=== PATIENT | female | born 1945 | race Caucasian/White ===

== ENCOUNTER 2016-12-30 19:43 | Inpatient (IN) | payer MEDICARE, OTHER ==
[~2016-12-30] VITALS: Ht 165.1 cm; Wt 43.5 kg
[2016-12-30] MEDS ORDERED: methylPREDNISolone SOD SUCC 125 MG/2 ML VIAL IVP ONE (20:00)
[2016-12-30] MEDS ORDERED: SODIUM CHLORIDE 0.9% FLUSH 10 ML FLUSH IVF PRN (20:00)
[2016-12-30 20:06] LABS: AUTOMATED NEUTROPHIL # 6.9 TH/MM3 (1.8-7.7); BASOPHIL % 0.2 % (0.0-2.0); EOSINOPHIL % 0.2 % (0.0-4.0); HEMATOCRIT 39.8 % (35.0-46.0); HEMO FLAGS DIFF FINAL; LYMPH % 5.1 % (9.0-44.0); LYMPHOCYTE # 0.4 TH/MM3 (1.0-4.8); MEAN CELL VOLUME 85.9 FL (80.0-100.0); MEAN CORPUSCULAR HEMOGLOBIN 28.8 PG (27.0-34.0); MEAN CORPUSCULAR HGB CONC 33.5 % (32.0-36.0); MONO % 8.5 % (0.0-8.0); PLATELET COUNT 158 TH/MM3 (150-450); RED BLOOD COUNT 4.63 MIL/MM3 (4.00-5.30); RED CELL DISTRIBUTION WIDTH 14.1 % (11.6-17.2); WHITE BLOOD COUNT 8.1 TH/MM3 (4.0-11.0)
--- NOTE | 2016-12-30 20:06 | PD ---
HPI Chief Complaint: shortness of breath Time Seen by Provider: 19:48 Travel History International Travel<30 days: No Contact w/Intl Traveler<30days: No Traveled to known affect area: No History of Present Illness HPI The patient is a 71-year-old female who presents to the emergency department shortness of breath. The patient is currently on vacation from [place]. The patient has a history of COPD and CHF, is chronically on oxygen via 1 L at home. The patient states she developed shortness of breath last night which is progressively worsened. She also complains of a dry nonproductive cough. The patient denies any history of previous intubations for COPD, however, does note a history of previous blood clot. The patient is currently on Coumadin for a blood clot. The patient denies any fever, chills, sweats, or lower extremity edema. The patient denies any current chest pain, does note a dry nonproductive cough, shortness of breath which is worse with exertion and minimally alleviated with oxygen. The patient denies any current nausea, vomiting, diarrhea, or abdominal pain. PFSH Past Medical History Narrative Medical Congestive heart failure, COPD Social History Tobacco Use: Yes Allergies-Medications (Allergen,Severity, Reaction): Coded Allergies: No Known Allergies (Unverified , 12/30/16) Reported Meds & Prescriptions Reported Meds & Active Scripts Active Reported Hydrocodone-Acetaminophen 10-325 mg Tab 1 Tab PO Q4H PRN Amlodipine (Amlodipine Besylate) 5 Mg Tab 5 Mg PO DAILY Hydrochlorothiazide 25 Mg Tab 25 Mg PO DAILY Omeprazole 40 Mg Cap 40 Mg PO DAILY Ferrous Sulfate 325 Mg Tab 325 Mg PO DAILY Losartan (Losartan Potassium) 50 Mg Tab 50 Mg PO DAILY Pravastatin 20 Mg Tab 20 Mg PO HS Coumadin (Warfarin) 5 Mg Tab 5 Mg PO MON,WED,FRI Trazodone (Trazodone HCl) 100 Mg Tab 200 Mg PO HS Carvedilol 25 Mg Tab 25 Mg PO BID Review of Systems Except as stated in HPI: all other systems reviewed are Neg General / Constitutional: No: Fever Cardiovascular: Positive: Dyspnea on exertion, No: Chest Pain or Discomfort Respiratory: Positive: Cough, Shortness of Breath Gastrointestinal: No: Nausea, Vomiting, Abdominal Pain Musculoskeletal: No: Edema Neurologic: No: Dizziness Physical Exam Narrative GENERAL: 71-year-old female who appears her stated age and in mild respiratory distress. Thin build. SKIN: Warm and dry. HEAD: Atraumatic. Normocephalic. EYES: No injection or drainage. ENT: No nasal bleeding or discharge. Mucous membranes pink and moist. NECK: Trachea midline. No JVD. CARDIOVASCULAR: Regular rate and rhythm. No murmur appreciated. RESPIRATORY: Mild tachypnea with a respiratory rate of 22. Diminished breath sounds in the bases with prolonged expiratory phase. Supraclavicular retractions. GASTROINTESTINAL: Abdomen soft, non-tender, nondistended. No rebound tenderness. MUSCULOSKELETAL: No obvious deformities. No clubbing. No cyanosis. No edema. NEUROLOGICAL: Awake and alert. No obvious cranial nerve deficits. Motor grossly within normal limits. Normal speech. PSYCHIATRIC: Appropriate mood and affect; insight and judgment normal. Data Data Last Documented VS Vital Signs Date Time Temp Pulse Resp B/P Pulse Ox O2 Delivery O2 Flow Rate FiO2 12/30/16 20:14 Nasal Cannula 4 12/30/16 20:11 98.8 69 28 120/57 92 Orders Complete Blood Count With Diff (12/30/16 19:48) Comprehensive Metabolic Panel (12/30/16 19:48) B-Type Natriuretic Peptide (12/30/16 19:48) Act Partial Throm Time (Ptt) (12/30/16 19:48) Prothrombin Time / Inr (Pt) (12/30/16 19:48) Magnesium (Mg) (12/30/16 19:48) Ckmb (Isoenzyme) Profile (12/30/16 19:48) Troponin I (12/30/16 19:48) Iv Access Insert/Monitor (12/30/16 19:48) Electrocardiogram (12/30/16 19:48) Ecg Monitoring (12/30/16 19:48) Oximetry (12/30/16 19:48) Oxygen Administration (12/30/16 19:48) Chest, Single Ap (12/30/16 19:48) Sodium Chloride 0.9% Flush (Ns Flush) (12/30/16 20:00) Methylprednisolone So Succ Inj (Solumedr (12/30/16 20:00) Albuterol-Ipratropium Neb (Duoneb Neb) (12/30/16 20:00) Ceftriaxone Inj (Rocephin Inj) (12/30/16 21:00) Azithromycin Inj (Zithromax Inj) (12/30/16 21:00) Admit Order (Ed Use Only) (12/30/16 21:23) Lactic Acid (12/30/16 21:21) Blood Culture (12/30/16 21:21) Ceftriaxone Inj (Rocephin Inj) (12/31/16 07:00) Azithromycin Inj (Zithromax Inj) (12/31/16 07:00) Albuterol-Ipratropium Neb (Duoneb Neb) (12/30/16 22:00) Albuterol-Ipratropium Neb (Duoneb Neb) (12/30/16 21:30) Sputum Culture And Gram Stain (12/30/16 21:21) Legionella Urinary Antigen (12/30/16 21:21) Pneumococcal Urinary Antigen (12/30/16 21:21) Influenzae A/B Antigen (12/30/16 21:21) Arterial Blood Gas (Abg) (12/30/16 ) Methylprednisolone So Succ Inj (Solumedr (12/31/16 00:00) Admit To Inpatient (12/30/16 ) Vital Signs (Adult) Q4H (12/30/16 21:25) Activity Oob With Assistance (12/30/16 21:25) [employer] / Telemetry .CONTINUOUS (12/30/16 21:25) Intake + Output NICOL.QSHIFT (12/30/16 21:25) Diet Heart Healthy (12/31/16 Breakfast) Sodium Chloride 0.9% Flush (Ns Flush) (12/30/16 21:30) Sodium Chloride 0.9% Flush (Ns Flush) (12/31/16 09:00) Acetaminophen (Tylenol) (12/30/16 21:30) Ondansetron Inj (Zofran Inj) (12/30/16 21:30) Docusate Sodium (Colace) (12/30/16 21:30) Sennosides (Senokot) (12/30/16 21:30) Prothrombin Time / Inr (Pt) (12/31/16 06:00) Resp Oxygen Sha C Titrat 1-4 L (12/30/16 ) Case Management Consult (12/30/16 21:25) Scd Bilateral/Knee High NICOL.BID (12/30/16 21:25) Acetaminophen (Tylenol) (12/30/16 21:30) Naloxone Inj (Narcan Inj) (12/30/16 21:30) Inpatient Certification (12/30/16 ) Labs Laboratory Tests Test 12/30/16 20:00 White Blood Count 8.1 TH/MM3 Red Blood Count 4.63 MIL/MM3 Hemoglobin 13.3 GM/DL Hematocrit 39.8 % Mean Corpuscular Volume 85.9 FL Mean Corpuscular Hemoglobin 28.8 PG Mean Corpuscular Hemoglobin 33.5 % Concent Red Cell Distribution Width 14.1 % Platelet Count 158 TH/MM3 Mean Platelet Volume 6.8 FL Neutrophils (%) (Auto) 86.0 % Lymphocytes (%) (Auto) 5.1 % Monocytes (%) (Auto) 8.5 % Eosinophils (%) (Auto) 0.2 % Basophils (%) (Auto) 0.2 % Neutrophils # (Auto) 6.9 TH/MM3 Lymphocytes # (Auto) 0.4 TH/MM3 Monocytes # (Auto) 0.7 TH/MM3 Eosinophils # (Auto) 0.0 TH/MM3 Basophils # (Auto) 0.0 TH/MM3 CBC Comment DIFF FINAL Differential Comment Prothrombin Time 26.6 SEC Prothromb Time International 2.3 RATIO Ratio Activated Partial 49.0 SEC Thromboplast Time Sodium Level 133 MEQ/L Potassium Level 4.3 MEQ/L Chloride Level 91 MEQ/L Carbon Dioxide Level 34.1 MEQ/L Anion Gap 8 MEQ/L Blood Urea Nitrogen 21 MG/DL Creatinine 0.91 MG/DL Estimat Glomerular Filtration 61 ML/MIN Rate Random Glucose 113 MG/DL Calcium Level 8.8 MG/DL Magnesium Level 1.7 MG/DL Total Bilirubin 0.5 MG/DL Aspartate Amino Transf 14 U/L (AST/SGOT) Alanine Aminotransferase 13 U/L (ALT/SGPT) Alkaline Phosphatase 151 U/L Total Creatine Kinase 36 U/L Troponin I LESS THAN 0.02 NG/ML B-Type Natriuretic Peptide 186 PG/ML Total Protein 6.9 GM/DL Albumin 2.6 GM/DL MDM Medical Decision Making Medical Screen Exam Complete: Yes Emergency Medical Condition: Yes Medical Record Reviewed: Yes Interpretation(s) EKG reveals normal sinus rhythm with a rate of 61. Incomplete right bundle branch block with RSR prime in V1. Q wave noted in lead V1 and V2. Chest x-ray reveals perihilar and basilar infiltrate, mainly on the left. Slight left perihilar prominence. Last Impressions Chest X-Ray 12/30/161947 Signed Impressions: Service Date/Time: Friday, December 30, 2016 20:09 - CONCLUSION: Perihilar and basilar infiltrate, mainly on the left. Slight left hilar prominence. Nasim Peña MD Laboratory Tests Test 12/30/16 20:00 White Blood Count 8.1 TH/MM3 Red Blood Count 4.63 MIL/MM3 Hemoglobin 13.3 GM/DL Hematocrit 39.8 % Mean Corpuscular Volume 85.9 FL Mean Corpuscular Hemoglobin 28.8 PG Mean Corpuscular Hemoglobin 33.5 % Concent Red Cell Distribution Width 14.1 % Platelet Count 158 TH/MM3 Mean Platelet Volume 6.8 FL Neutrophils (%) (Auto) 86.0 % Lymphocytes (%) (Auto) 5.1 % Monocytes (%) (Auto) 8.5 % Eosinophils (%) (Auto) 0.2 % Basophils (%) (Auto) 0.2 % Neutrophils # (Auto) 6.9 TH/MM3 Lymphocytes # (Auto) 0.4 TH/MM3 Monocytes # (Auto) 0.7 TH/MM3 Eosinophils # (Auto) 0.0 TH/MM3 Basophils # (Auto) 0.0 TH/MM3 CBC Comment DIFF FINAL Differential Comment Prothrombin Time 26.6 SEC Prothromb Time International 2.3 RATIO Ratio Activated Partial 49.0 SEC Thromboplast Time Sodium Level 133 MEQ/L Potassium Level 4.3 MEQ/L Chloride Level 91 MEQ/L Carbon Dioxide Level 34.1 MEQ/L Anion Gap 8 MEQ/L Blood Urea Nitrogen 21 MG/DL Creatinine 0.91 MG/DL Estimat Glomerular Filtration 61 ML/MIN Rate Random Glucose 113 MG/DL Calcium Level 8.8 MG/DL Magnesium Level 1.7 MG/DL Total Bilirubin 0.5 MG/DL Aspartate Amino Transf 14 U/L (AST/SGOT) Alanine Aminotransferase 13 U/L (ALT/SGPT) Alkaline Phosphatase 151 U/L Total Creatine Kinase 36 U/L Troponin I LESS THAN 0.02 NG/ML B-Type Natriuretic Peptide 186 PG/ML Total Protein 6.9 GM/DL Albumin 2.6 GM/DL Differential Diagnosis Differential diagnosis includes COPD exacerbation, bronchitis, pneumonia, pulmonary embolism, congestive heart failure, pleural effusion, pneumothorax. Narrative Course IV was established, labs are drawn and sent, and the patient was placed on cardiac telemetry monitoring and continuous pulse oximetry monitoring. EKG was ordered and interpreted. Chest x-ray was obtained. The patient was administered Solu-Medrol and DuoNeb nebs 3. Patient's O2 saturation was 88% on 4 L. Chest x-ray reveals perihilar basilar infiltrate, mainly on the left, therefore, patient was administered Rocephin and Zithromax. The patient was reevaluated at 9 PM, still has supraclavicular retractions and respiratory rate of 22-24. O2 sat did improve to 95% on 4 L, patient is normally on 1-2 satting above 92%. The patient appears to have pneumonia which is exacerbating her COPD. INR is therapeutic, I do not believe the patient has a pulmonary embolism. Therefore, the patient will be admitted for pneumonia, COPD exacerbation, and acute hypoxia on chronic hypoxia. Sepsis Criteria SIRS Criteria (2 or more): RR > 20 or PaCO2 < 32 Physician Communication Physician Communication The on-call medical service was paged for admission. I discussed the patient with Dr. Saldivar who agrees with admission. Diagnosis Primary Impression: Pneumonia Qualified Code: J18.9 - Pneumonia of left lung due to infectious organism, unspecified part of lung Additional Impressions: Hypoxia COPD exacerbation Admitting Information Admitting Physician Requests: Admit Condition: Stable Jose Boone MD Dec 30, 2016 20:06
[2016-12-30] MEDS: RESP: ALBUTEROL 2.5 MG/IPRATROPIUM 0.5 MG NEB (SCH) INH ×2 (20:10→21:47)
[2016-12-30 20:11] VITALS: BP 120/57; PULSE 69; RESP 28; TEMP 98.8; O2SAT 92
[2016-12-30 20:28] LABS: INTERNATIONAL NORMALIZED RATIO 2.3 RATIO; PROTHROMBIN TIME - PATIENT 26.6 SEC (9.8-11.6)
[2016-12-30] MEDS ORDERED: OMEP40CA2 PO (20:37)
[2016-12-30] MEDS ORDERED: PRAV20TA2 PO (20:37)
[2016-12-30] MEDS ORDERED: COUM5TAB PO (20:37)
[2016-12-30] MEDS ORDERED: TRAZ100T4 PO (20:37)
[2016-12-30] MEDS ORDERED: CARV25TA PO (20:37)
[2016-12-30] MEDS ORDERED: LOSA50TA PO (20:37)
[2016-12-30] MEDS ORDERED: HYDR-3583 PO (20:37)
[2016-12-30] MEDS ORDERED: HYDR25TA5 PO (20:37)
[2016-12-30] MEDS ORDERED: AMLO5TAB2 PO (20:37)
[2016-12-30] MEDS ORDERED: FERR325T PO (20:37)
[2016-12-30 20:39] LABS: ANION GAP 8 MEQ/L (5-15); AST (GOT) 14 U/L (15-37); BICARBONATE 34.1 MEQ/L (21.0-32.0); BLOOD UREA NITROGEN 21 MG/DL (7-18); CHLORIDE 91 MEQ/L (98-107); GLOMERULAR FILTRATION RATE 61 ML/MIN (>89); MAGNESIUM 1.7 MG/DL (1.5-2.5); POTASSIUM 4.3 MEQ/L (3.5-5.1); SODIUM (NA) 133 MEQ/L (136-145)
[2016-12-30 20:43] LABS: ALKALINE PHOSPHATASE 151 U/L (45-117); ALT (GPT) 13 U/L (10-53); TOTAL BILIRUBIN ADULT 0.5 MG/DL (0.2-1.0)
[2016-12-30 20:48] LABS: CREATINE KINASE 36 U/L (26-192)
--- NOTE | 2016-12-30 20:49 | RADRPT ---
EXAM DATE/TIME: 12/30/2016 20:09 [facility] COMPARISON: No previous studies available for comparison. INDICATIONS : SOB MEDICAL HISTORY : None. SURGICAL HISTORY : None. ENCOUNTER: Initial ACUITY: 1 day PAIN SCORE: 6/10 LOCATION: chest FINDINGS: Left hilar prominence. Reticulonodular interstitial infiltrate, mainly in the left perihilar region a nd left lung base. Borderline heart size. Slight right apical pleural thickening. CONCLUSION: Perihilar and basilar infiltrate, mainly on the left. Slight left hilar prominence. Nasim Peña MD on December 30, 2016 at 20:47 Board Certified Radiologist. This report was verified electronically.
[2016-12-30 21:00] VITALS: O2SAT 95
[2016-12-30] MEDS ORDERED: cefTRIAXone INJ 1,000 MG in SODIUM CHLORIDE 0.9% INJ 100 ML IV ONE (21:00)
[2016-12-30] MEDS ORDERED: AZITHROMYCIN INJ 500 MG in SODIUM CHLOR 0.9% 250 ML INJ 250 ML IV ONE (21:00)
[2016-12-30] MEDS ORDERED: ONDANSETRON HCL 4 MG/2 ML VIAL IVP PRN (21:30)
[2016-12-30] MEDS ORDERED: NALOXONE HCL 0.4 MG/ML AMP IV PRN (21:30)
[2016-12-30] MEDS ORDERED: SODIUM CHLORIDE 0.9% FLUSH 10 ML FLUSH IV FLUSH PRN (21:30)
[2016-12-30] MEDS ORDERED: RESP: ALBUTEROL 2.5 MG/IPRATROPIUM 0.5 MG NEB (PRN) INH (21:30)
[2016-12-30] MEDS ORDERED: ENALAPRILAT 1.25 MG/ML VIAL IV PRN (21:30)
[2016-12-30] MEDS ORDERED: SENNOSIDES 8.6 MG TAB PO PRN (21:30)
[2016-12-30] MEDS ORDERED: cloNIDine HCL 0.1 MG TAB PO PRN (21:30)
[2016-12-30] MEDS ORDERED: ACETAMINOPHEN 325 MG TAB PO PRN ×2 (21:30)
[2016-12-30 21:45] LABS: BLOOD GAS BASE EXCESS 5.3 mmol/L (-2-2); BLOOD GAS HCO3 30 mmol/L (22-26); BLOOD GAS METHEMOGLOBIN 0.4 % (0-2); BLOOD GAS O2 HGB SATURATION 90 % (90-100); BLOOD GAS OXYGEN CONTENT 15.4 Vol % (12.0-20.0); BLOOD GAS PCO2 46 mmHg (38-42); BLOOD GAS PO2 58 mmHG (61-120); BLOOD GAS TOTAL HGB 12.2 G/DL (12.0-16.0); TEMP CORR TO 98.6
[2016-12-30 21:46] LABS: CRITICAL VALUE YES; OXYGEN DEVICE NASAL CANNULA
[2016-12-30] MEDS: DOCUSATE SODIUM 100 MG CAP PO SCH (21:46)
[2016-12-30 21:47] LABS: DRAW SITE LT RADIAL; LITER FLOW 3 L/M; NUMBER OF ARTERIAL PUNCTURES 1; STAT YES; ULNAR PULSE PRESENT
[2016-12-30] MEDS ORDERED: ACETAMINOPHEN/HYDROcodone 325 MG/10 MG TAB PO ONE (22:00)
--- NOTE | 2016-12-30 22:12 | HHI.HP ---
[facility] Service [facility] Primary Care Physician Non-Staff Admission Diagnosis pneumonia, hypoxia, COPD exacerbation Diagnoses: (1) COPD exacerbation Diagnosis: Principal (2) Pneumonia Diagnosis: Principal (3) Hypoxia Diagnosis: Principal Chief Complaint: Shortness of breath Travel History International Travel<30 Days: No Contact w/Intl Traveler <30 Da: No Traveled to Known Affected Are: No Sepsis Criteria SIRS Criteria (2 or more): Heart rate over 90, RR > 20 or PaCO2 < 32 Sepsis Criteria (SIRS+source): Infect source susp/known Criteria Outcome: Meets SIRS criteria, Meets sepsis criteria History of Present Illness This a 71-year-old female with a history of congestive heart failure, COPD, chronic respiratory failure on 1 L nasal cannula at home, pulmonary embolism, hypertension and chronic back and leg pain on narcotic. See presents to the emergency department shortness of breath. The patient is currently on vacation from [place]. She developed shortness of breath last night which has progressively worsened associated with wheezing. It is worse with exertion. She also complains of cough unable to bring up phlegm. The patient denies any history of previous intubations for COPD, however, does note a history of previous blood clot. The patient is currently on Coumadin for a blood clot. The patient denies any fever, chills, sweats, nausea, diarrhea or abdominal pain. She has chronic lower extremity edema. In the emergency department, she was found to have pneumonia and was given IV Zithromax, Rocephin, Solu-Medrol and nebulizations. She has been advised further hospitalization. Review of Systems Constitutional: DENIES: Diaphoretic episodes, Fatigue, Fever, Weight gain, Weight loss, Chills, Dizziness, Change in appetite, Night Sweats Endocrine: DENIES: Heat/cold intolerance, Polydipsia, Polyuria, Polyphagia Eyes: DENIES: Blurred vision, Diplopia, Vision loss, Photosensitivity Ears, nose, mouth, throat: DENIES: Tinnitus, Vertigo, Throat pain, Hoarseness, Epistaxis, Odynophagia Respiratory: COMPLAINS OF: Cough, Wheezing, Shortness of breath, DENIES: Hemoptysis Cardiovascular: COMPLAINS OF: Dyspnea on Exertion, Lower Extremity Edema, DENIES: Chest pain, Palpitations, Syncope, PND, Orthopnea, Claudication Gastrointestinal: DENIES: Abdominal pain, Black stools, Bloody stools, Constipation, Diarrhea, Nausea, Vomiting, Difficulty Swallowing, Anorexia Genitourinary: DENIES: Urinary frequency, Urinary incontinence, Urgency, Hematuria, Dysuria, Nocturia, Vaginal discharge Musculoskeletal: COMPLAINS OF: Back pain Integumentary: DENIES: Rash Neurologic: DENIES: Headache, Localized weakness, Seizures, Tremor, Poor Balance Psychiatric: DENIES: Anxiety, Confusion, Depression, Hallucinations, Agitation , Suicidal Ideation, Homicidal Ideation, Delusions Past Family Social History Past Medical History As previously mentioned Past Surgical History 2 Stents in in her kidneys as well as in her aorta history of aneurysm Reported Medications Hydrocodone-Acetaminophen 10-325 mg Tab 1 Tab PO Q4H PRN Amlodipine (Amlodipine Besylate) 5 Mg Tab 5 Mg PO DAILY Hydrochlorothiazide 25 Mg Tab 25 Mg PO DAILY Omeprazole 40 Mg Cap 40 Mg PO DAILY Ferrous Sulfate 325 Mg Tab 325 Mg PO DAILY Losartan (Losartan Potassium) 50 Mg Tab 50 Mg PO DAILY Pravastatin 20 Mg Tab 20 Mg PO HS Coumadin (Warfarin) 5 Mg Tab 5 Mg PO MON,MON,MON Trazodone (Trazodone HCl) 100 Mg Tab 200 Mg PO HS Carvedilol 25 Mg Tab 25 Mg PO BID Allergies: Coded Allergies: No Known Allergies (Unverified , 12/30/16) Family History Diabetes mellitus Physical Exam Vital Signs Vital Signs Date Time Temp Pulse Resp B/P Pulse Ox O2 Delivery O2 Flow Rate FiO2 12/30/16 20:14 Nasal Cannula 4 12/30/16 20:11 98.8 69 28 120/57 92 12/30/16 19:45 88 Nasal Cannula 4 Physical Exam GENERAL: This is a well-nourished, well-developed patient, in mild respiratory distress with tachypnea and supraclavicular retractions. SKIN: No rashes, ecchymoses or lesions. Cool and dry. HEAD: Atraumatic. Normocephalic. No temporal or scalp tenderness. EYES: Pupils equal round and reactive. Extraocular motions intact. No scleral icterus. No injection or drainage. ENT: Nose without bleeding, purulent drainage or septal hematoma. Throat without erythema, tonsillar hypertrophy or exudate. Uvula midline. Airway patent. NECK: Trachea midline. No JVD or lymphadenopathy. Supple, nontender, no meningeal signs. CARDIOVASCULAR: Regular rate and rhythm without murmurs, gallops, or rubs. RESPIRATORY: Decreased Breath sounds equal bilaterally with prolonged expiratory phase. No wheezes, rales, or rhonchi. GASTROINTESTINAL: Abdomen soft, non-tender, nondistended. No guarding. MUSCULOSKELETAL: Extremities without clubbing, cyanosis but with bilateral lower extremity pitting edema. No joint tenderness, effusion, or edema noted. No calf tenderness. Negative Homans sign bilaterally. NEUROLOGICAL: Awake and alert. Cranial nerves II through XII intact. Motor and sensory grossly within normal limits. Five out of 5 muscle strength in all muscle groups. Normal speech. Laboratory Laboratory Tests Test 12/30/16 12/30/16 20:00 21:35 White Blood Count 8.1 Red Blood Count 4.63 Hemoglobin 13.3 Hematocrit 39.8 Mean Corpuscular Volume 85.9 Mean Corpuscular Hemoglobin 28.8 Mean Corpuscular Hemoglobin 33.5 Concent Red Cell Distribution Width 14.1 Platelet Count 158 Mean Platelet Volume 6.8 Neutrophils (%) (Auto) 86.0 Lymphocytes (%) (Auto) 5.1 Monocytes (%) (Auto) 8.5 Eosinophils (%) (Auto) 0.2 Basophils (%) (Auto) 0.2 Neutrophils # (Auto) 6.9 Lymphocytes # (Auto) 0.4 Monocytes # (Auto) 0.7 Eosinophils # (Auto) 0.0 Basophils # (Auto) 0.0 CBC Comment DIFF FINAL Differential Comment Prothrombin Time 26.6 Prothromb Time International 2.3 Ratio Activated Partial 49.0 Thromboplast Time Sodium Level 133 Potassium Level 4.3 Chloride Level 91 Carbon Dioxide Level 34.1 Anion Gap 8 Blood Urea Nitrogen 21 Creatinine 0.91 Estimat Glomerular Filtration 61 Rate Random Glucose 113 Calcium Level 8.8 Magnesium Level 1.7 Total Bilirubin 0.5 Aspartate Amino Transf 14 (AST/SGOT) Alanine Aminotransferase 13 (ALT/SGPT) Alkaline Phosphatase 151 Total Creatine Kinase 36 Troponin I LESS THAN 0.02 B-Type Natriuretic Peptide 186 Total Protein 6.9 Albumin 2.6 Blood Gas Puncture Site LT RADIAL Blood Gas Patient Temperature 98.6 Blood Gas HCO3 30 Blood Gas Base Excess 5.3 Blood Gas Oxygen Saturation 90 Arterial Blood pH 7.42 Arterial Blood Partial 46 Pressure CO2 Arterial Blood Partial 58 Pressure O2 Arterial Blood Oxygen Content 15.4 Arterial Blood 2.0 Carboxyhemoglobin Arterial Blood Methemoglobin 0.4 Blood Gas Hemoglobin 12.2 Oxygen Delivery Device NASAL CANNULA Blood Gas Liter Flow 3 Result Diagram: 12/30/16199912/30/161999 Imaging EKG tracing interpreted by me with sinus rhythm, poor R wave progression, incomplete RBBB no previous EKG for comparison Chest x-ray image interpreted by me with left lung infiltrate Last Impressions Chest X-Ray 12/30/161947 Signed Impressions: Service Date/Time: Friday, December 30, 2016 20:09 - CONCLUSION: Perihilar and basilar infiltrate, mainly on the left. Slight left hilar prominence. Nasim Peña MD Assessment and Plan Problem List: (1) COPD exacerbation ICD Code: J44.1 Status: Acute (2) Pneumonia ICD Code: J18.9 Status: Acute (3) Hypoxia ICD Code: R09.02 Status: Acute Assessment and Plan This a 71-year-old female with a history of congestive heart failure, COPD, chronic respiratory failure on 1 L nasal cannula at home, pulmonary embolism, hypertension and chronic back and leg pain on narcotic. See presents to the emergency department shortness of breath. The patient is currently on vacation from [place]. She developed shortness of breath last night which has progressively worsened associated with wheezing. It is worse with exertion. She also complains of cough unable to bring up phlegm. The patient denies any history of previous intubations for COPD, however, does note a history of previous blood clot. The patient is currently on Coumadin for a blood clot. The patient denies any fever, chills, sweats, nausea, diarrhea or abdominal pain. She has chronic lower extremity edema. In the emergency department, she was found to have pneumonia and was given IV Zithromax, Rocephin, Solu-Medrol and nebulizations. She has been advised further hospitalization. Acute on chronic respiratory failure. ABG with pH 7.42 PCO2 46 PO2 of 58. She does not want to be intubated. BiPAP as needed. Continue oxygen keep saturation at least 92% Sepsis with tachycardia and tachypnea. Obtain lactic acid per protocol Pneumonia, community-acquired. Patient received IV Rocephin and Zithromax and will continue. Obtain sputum culture, urinary Legionella and pneumococcal antigen and blood cultures. Acute COPD exacerbation. Continue IV Solu-Medrol 40 mg IV every 6 hours, nebulizations and oxygen to keep saturation at least 92%. Chronic medical conditions of congestive heart failure, pulmonary embolism, hypertension and chronic back and leg pain on narcotic. Monitor for fluid overload BNP slightly up 186, CHF education, I/O and monitor weight. Continue hydrochlorothiazide. Doubt pulmonary embolism patient anticoagulated with Coumadin and will continue. Continue outpatient medications as appropriate. We will hold losartan and amlodipine DVT prophylaxis with Coumadin and SCD Code Status DO NOT INTUBATE Discussed Condition With Patient and sister Physician Certification 2 Midnight Certification Type: Admission for Inpatient Services Order for Inpatient Services The services are ordered in accordance with Medicare regulations or non- Medicare payer requirements, as applicable. In the case of services not specified as inpatient-only, they are appropriately provided as inpatient services in accordance with the 2-midnight benchmark. Estimated LOS (days): 2 days is the estimated time the patient will need to remain in the hospital, assuming treatment plan goals are met and no additional complications. Post-Hospital Plan: Not yet determined Problem Qualifiers (1) Pneumonia: Qualified Code: J18.9 - Pneumonia of left lung due to infectious organism, unspecified part of lung Mono Saldivar MD Dec 30, 2016 22:12
[2016-12-30] MEDS: guaiFENesin E.R. 600 MG TAB PO SCH (23:05)
[2016-12-31] VITALS (10 sets, daily range): BP systolic 111–149; BP diastolic 55–71; PULSE 64–98; RESP 16–19; TEMP 96.1–97.6; O2SAT 93–97
[2016-12-31] MEDS: methylPREDNISolone SOD SUCC 40 MG/1 ML VIAL IV PUSH SCH ×3 (00:42→21:01)
[2016-12-31] MEDS: traZODone HCL 100 MG TAB PO SCH ×2 (00:46→21:05)
[2016-12-31] MEDS: RESP: ALBUTEROL 2.5 MG/IPRATROPIUM 0.5 MG NEB (SCH) INH ×4 (03:28→21:24)
[2016-12-31 04:39] LABS: INTERNATIONAL NORMALIZED RATIO 2.5 RATIO; PROTHROMBIN TIME - PATIENT 28.2 SEC (9.8-11.6)
[2016-12-31] MEDS: DOCUSATE SODIUM 100 MG CAP PO SCH ×3 (08:39→21:05)
[2016-12-31] MEDS: CARVEDILOL 12.5 MG TAB PO SCH ×2 (08:40→21:01)
[2016-12-31] MEDS: FERROUS SULFATE 325 MG (65 MG ELEMENTAL IRON) TAB PO SCH (08:41)
[2016-12-31] MEDS: HYDROCHLOROTHIAZIDE 25 MG TAB PO SCH (08:43)
[2016-12-31] MEDS: guaiFENesin E.R. 600 MG TAB PO SCH ×2 (08:43→21:04)
[2016-12-31] MEDS: ACETAMINOPHEN/HYDROcodone 325 MG/10 MG TAB PO PRN ×4 (08:43→21:14)
[2016-12-31] MEDS: PANTOPRAZOLE SOD 40 MG DELAYED RELEASE TAB PO SCH (08:43)
[2016-12-31] MEDS: SODIUM CHLORIDE 0.9% FLUSH 10 ML FLUSH IV FLUSH SCH ×2 (08:45→21:00)
--- NOTE | 2016-12-31 09:32 | HHI.PR ---
Subjective Remarks Follow-up Community-acquired pneumonia/sepsis/acute on chronic respiratory failure 12/31/16-patient seen and examined, reports some improvement or shortness of breath and denies any chest pain. Positive for nonproductive cough. Afebrile Objective Vitals Vital Signs Date Time Temp Pulse Resp B/P Pulse Ox O2 Delivery O2 Flow Rate FiO2 12/31/16 08:00 96.5 71 17 131/67 94 12/31/16 04:02 96.4 85 16 114/58 94 12/31/16 03:30 96 Nasal Cannula 4.00 12/31/16 00:12 96.1 72 18 111/55 97 12/30/16 21:00 95 Nasal Cannula 4.00 12/30/16 20:14 Nasal Cannula 4 12/30/16 20:11 98.8 69 28 120/57 92 12/30/16 19:45 88 Nasal Cannula 4 I/O 12/30/16 12/30/16 12/30/16 12/31/16 12/31/16 12/31/16 07:00 15:00 23:00 07:00 15:00 23:00 Intake Total 280 ml Balance 280 ml Intake Oral 280 ml # Voids 2 # Bowel Movements 0 Result Diagram: 12/30/16199912/30/161999 Imaging Last Impressions Chest X-Ray 12/30/161947 Signed Impressions: Service Date/Time: Friday, December 30, 2016 20:09 - CONCLUSION: Perihilar and basilar infiltrate, mainly on the left. Slight left hilar prominence. Nasim Peña MD Objective Remarks GENERAL: NAD SKIN: Warm and dry. HEAD: Normocephalic. EYES: No scleral icterus. No injection or drainage. NECK: Supple, trachea midline. No JVD or lymphadenopathy. CARDIOVASCULAR: Regular rate and rhythm without murmurs, gallops, or rubs. RESPIRATORY: Breath sounds decrease bilaterally. No accessory muscle use. GASTROINTESTINAL: Abdomen soft, non-tender, nondistended. MUSCULOSKELETAL: No cyanosis, or edema. BACK: Nontender without obvious deformity. No CVA tenderness. A/P Problem List: (1) COPD exacerbation ICD Code: J44.1 Status: Acute (2) Pneumonia ICD Code: J18.9 Status: Acute (3) Hypoxia ICD Code: R09.02 Status: Acute (4) COPD with acute lower respiratory infection ICD Code: J44.0 Status: Acute (5) COPD with respiratory failure, acute ICD Code: J96.00 Status: Acute Assessment and Plan 71-year-old female with COPD with acute respiratory failure ,Acute on chronic respiratory failure. ABG with pH 7.42 PCO2 46 PO2 of 58. BiPAP as needed. Continue oxygen keep saturation at least 92%. Treatment for COPD exacerbation Sepsis with tachycardia and tachypnea. Continue current antibiotics including Rocephin and azithromycin pending culture reports COPD with acute lower respiratory infection , community-acquired Pneumonia: Continue with IV Rocephin and Zithromax and monitor culture reports. sputum culture, urinary Legionella and pneumococcal antigen and blood cultures. Acute COPD exacerbation. Continue IV Solu-Medrol 40 mg IV every 6 hours however change to every 12H, continue nebulizations and oxygen to keep saturation at least 92%. Add Spiriva, Symbicort and Mucinex Chronic medical conditions of congestive heart failure, pulmonary embolism, hypertension and chronic back and leg pain on narcotic. Monitor for fluid overload BNP slightly up 186, CHF education, I/O and monitor weight. Continue hydrochlorothiazide. Continue outpatient medications as appropriate. Continue to hold losartan and amlodipine DVT prophylaxis with Coumadin and SCD Problem Qualifiers (1) Pneumonia: Qualified Code: J18.9 - Pneumonia of left lung due to infectious organism, unspecified part of lung Bret Maher MD Dec 31, 2016 09:32
[2016-12-31] MEDS: TIOTROPIUM BROMIDE 18 MCG INH INH SCH (12:53)
[2016-12-31] MEDS: guaiFENesin/CODEINE SYRUP 200 MG/20 MG/10 ML CUP PO PRN ×3 (12:55→21:12)
--- NOTE | 2016-12-31 16:08 | EKG ---
Date Performed: 12/30/2016 Time Performed: 20:01:50 PTAGE: 71 years EKG: Sinus rhythm INCOMPLETE RIGHT BUNDLE BRANCH BLOCK LEFT ANTERIOR FASCICULAR BLOCK ANTEROSEPTAL MYOCARDIAL INFARCTI ON Left ventricular hypertrophy by voltage ABNORMAL ECG NO PREVIOUS TRACING DOCTOR: Hadley López Interpretating Date/Time 12/31/2016 16:06:15
[2016-12-31] MEDS: BUDESONIDE-FORMOTEROL 160/4.5 MCG INHALER INH SCH (20:59)
[2016-12-31] MEDS: cefTRIAXone INJ 1,000 MG in SODIUM CHLORIDE 0.9% INJ 100 ML IV SCH (21:00)
[2016-12-31] MEDS: PRAVASTATIN SOD 20 MG TAB PO SCH (21:04)
[2016-12-31] MEDS: AZITHROMYCIN INJ 500 MG in SODIUM CHLOR 0.9% 250 ML INJ 250 ML IV SCH (22:25)
[2017-01-01] VITALS (7 sets, daily range): BP systolic 129–179; BP diastolic 70–83; PULSE 62–82; RESP 17–18; TEMP 95.7–97.4; O2SAT 90–98
[2017-01-01] MEDS: RESP: ALBUTEROL 2.5 MG/IPRATROPIUM 0.5 MG NEB (SCH) INH ×4 (02:59→21:56)
[2017-01-01 04:39] LABS: BICARBONATE 34.7 MEQ/L (21.0-32.0); POTASSIUM 3.9 MEQ/L (3.5-5.1)
[2017-01-01 04:40] LABS: INTERNATIONAL NORMALIZED RATIO 2.2 RATIO; PROTHROMBIN TIME - PATIENT 25.2 SEC (9.8-11.6)
[2017-01-01 05:00] LABS: AUTOMATED NEUTROPHIL # 6.2 TH/MM3 (1.8-7.7); BASOPHIL % 0.1 % (0.0-2.0); HEMATOCRIT 35.1 % (35.0-46.0); HEMO FLAGS DIFF FINAL; LYMPH % 4.6 % (9.0-44.0); LYMPHOCYTE # 0.3 TH/MM3 (1.0-4.8); MEAN CELL VOLUME 85.2 FL (80.0-100.0); MEAN CORPUSCULAR HEMOGLOBIN 28.5 PG (27.0-34.0); MEAN CORPUSCULAR HGB CONC 33.4 % (32.0-36.0); MONO % 3.7 % (0.0-8.0); NEUT % 91.6 % (16.0-70.0); PLATELET COUNT 177 TH/MM3 (150-450); RED BLOOD COUNT 4.12 MIL/MM3 (4.00-5.30); WHITE BLOOD COUNT 6.8 TH/MM3 (4.0-11.0)
[2017-01-01] MEDS: guaiFENesin/CODEINE SYRUP 200 MG/20 MG/10 ML CUP PO PRN ×4 (08:57→22:03)
[2017-01-01] MEDS: FERROUS SULFATE 325 MG (65 MG ELEMENTAL IRON) TAB PO SCH (08:58)
[2017-01-01] MEDS: ACETAMINOPHEN/HYDROcodone 325 MG/10 MG TAB PO PRN ×4 (08:58→22:02)
[2017-01-01] MEDS: guaiFENesin E.R. 600 MG TAB PO SCH ×2 (08:58→20:09)
[2017-01-01] MEDS: CARVEDILOL 12.5 MG TAB PO SCH ×2 (08:58→20:09)
[2017-01-01] MEDS: HYDROCHLOROTHIAZIDE 25 MG TAB PO SCH (08:58)
[2017-01-01] MEDS: PANTOPRAZOLE SOD 40 MG DELAYED RELEASE TAB PO SCH (08:58)
[2017-01-01] MEDS: DOCUSATE SODIUM 100 MG CAP PO SCH ×2 (08:59→20:09)
[2017-01-01] MEDS: methylPREDNISolone SOD SUCC 40 MG/1 ML VIAL IV PUSH SCH ×2 (08:59→20:08)
[2017-01-01] MEDS: TIOTROPIUM BROMIDE 18 MCG INH INH SCH (09:00)
[2017-01-01] MEDS: BUDESONIDE-FORMOTEROL 160/4.5 MCG INHALER INH SCH ×2 (09:00→20:17)
[2017-01-01] MEDS: SODIUM CHLORIDE 0.9% FLUSH 10 ML FLUSH IV FLUSH SCH ×2 (09:00→20:09)
--- NOTE | 2017-01-01 10:19 | HHI.PR ---
Subjective Remarks Follow-up Community-acquired pneumonia/sepsis/acute on chronic respiratory failure 12/31/16-patient seen and examined, reports some improvement or shortness of breath and denies any chest pain. Positive for nonproductive cough. Afebrile 01/01/17-patient seen and examined, now with some improvement of shortness of breath as well as productive cough. Currently on 2 L nasal cannula. Afebrile Objective Vitals Vital Signs Date Time Temp Pulse Resp B/P Pulse Ox O2 Delivery O2 Flow Rate FiO2 01/01/17 08:00 95.7 70 18 129/73 96 01/01/17 00:00 97.4 77 18 129/70 98 12/31/16 21:25 93 Nasal Cannula 2.00 12/31/16 20:00 97.0 82 19 148/71 93 12/31/16 19:50 98 12/31/16 16:00 96.7 64 18 149/65 94 12/31/16 12:00 97.6 77 17 144/70 94 12/31/16 10:36 96 Nasal Cannula 2.00 I/O 12/31/16 12/31/16 12/31/16 01/01/17 01/01/17 01/01/17 07:00 15:00 23:00 07:00 15:00 23:00 Intake Total 280 ml 240 ml 240 ml 240 ml Balance 280 ml 240 ml 240 ml 240 ml Intake Oral 280 ml 240 ml 240 ml 240 ml # Voids 2 3 3 4 # Bowel Movements 0 0 Result Diagram: 01/01/17 0357 01/01/17 0357 Imaging Last Impressions Chest X-Ray 12/30/16 194 Signed Impressions: Service Date/Time: Friday, December 30, 2016 20:09 - CONCLUSION: Perihilar and basilar infiltrate, mainly on the left. Slight left hilar prominence. Nasim Peña MD Objective Remarks GENERAL: NAD SKIN: Warm and dry. HEAD: Normocephalic. EYES: No scleral icterus. No injection or drainage. NECK: Supple, trachea midline. No JVD or lymphadenopathy. CARDIOVASCULAR: Regular rate and rhythm without murmurs, gallops, or rubs. RESPIRATORY: Breath sounds decrease bilaterally. No accessory muscle use. GASTROINTESTINAL: Abdomen soft, non-tender, nondistended. MUSCULOSKELETAL: No cyanosis, or edema. BACK: Nontender without obvious deformity. No CVA tenderness. A/P Problem List: (1) COPD exacerbation ICD Code: J44.1 Status: Acute (2) Pneumonia ICD Code: J18.9 Status: Acute (3) Hypoxia ICD Code: R09.02 Status: Acute (4) COPD with acute lower respiratory infection ICD Code: J44.0 Status: Acute (5) COPD with respiratory failure, acute ICD Code: J96.00 Status: Acute Assessment and Plan 71-year-old female with COPD with acute respiratory failure ,Acute on chronic respiratory failure. Improving and Continue oxygen keep saturation at least 92%. Treatment for COPD exacerbation Sepsis with tachycardia and tachypnea. Continue current antibiotics including Rocephin and azithromycin pending culture reports COPD with acute lower respiratory infection , community-acquired Pneumonia: Continue with IV Rocephin and Zithromax and monitor culture reports. Acute COPD exacerbation. Continue IV Solu-Medrol 40 mg IV every 12H however switched to prednisone 20 mg by mouth daily on 01/02/17, continue nebulizations and oxygen to keep saturation at least 92%. Continue Spiriva, Symbicort and Mucinex Chronic medical conditions of congestive heart failure, pulmonary embolism, hypertension and chronic back and leg pain on narcotic. Monitor for fluid overload BNP slightly up 186, CHF education, I/O and monitor weight. Continue hydrochlorothiazide. Continue outpatient medications as appropriate. Continue to hold losartan and amlodipine DVT prophylaxis with Coumadin and SCD PT to treat and eval Problem Qualifiers (1) Pneumonia: Qualified Code: J18.9 - Pneumonia of left lung due to infectious organism, unspecified part of lung Bret Maher MD Jan 01, 2017 10:19
[2017-01-01] MEDS ORDERED: WARFARIN SOD 2.5 MG TAB PO SCH (16:00)
[2017-01-01] MEDS: cefTRIAXone INJ 1,000 MG in SODIUM CHLORIDE 0.9% INJ 100 ML IV SCH (20:08)
[2017-01-01] MEDS: PRAVASTATIN SOD 20 MG TAB PO SCH (20:09)
[2017-01-01] MEDS: traZODone HCL 100 MG TAB PO SCH (20:09)
[2017-01-01] MEDS: AZITHROMYCIN INJ 500 MG in SODIUM CHLOR 0.9% 250 ML INJ 250 ML IV SCH (22:03)
[2017-01-02] VITALS (8 sets, daily range): BP systolic 145–174; BP diastolic 69–83; PULSE 59–82; RESP 17–18; TEMP 95.9–98.7; O2SAT 92–98
[2017-01-02] MEDS: guaiFENesin/CODEINE SYRUP 200 MG/20 MG/10 ML CUP PO PRN ×4 (02:43→16:55)
[2017-01-02] MEDS: ACETAMINOPHEN/HYDROcodone 325 MG/10 MG TAB PO PRN ×5 (02:44→20:50)
[2017-01-02] MEDS: RESP: ALBUTEROL 2.5 MG/IPRATROPIUM 0.5 MG NEB (SCH) INH ×4 (04:21→19:51)
[2017-01-02 05:27] LABS: AUTOMATED NEUTROPHIL # 6.2 TH/MM3 (1.8-7.7); BASOPHIL % 0.1 % (0.0-2.0); HEMATOCRIT 35.7 % (35.0-46.0); LYMPH % 5.8 % (9.0-44.0); LYMPHOCYTE # 0.4 TH/MM3 (1.0-4.8); MEAN CELL VOLUME 85.2 FL (80.0-100.0); MEAN CORPUSCULAR HEMOGLOBIN 28.4 PG (27.0-34.0); MEAN CORPUSCULAR HGB CONC 33.3 % (32.0-36.0); MONO % 3.5 % (0.0-8.0); NEUT % 90.6 % (16.0-70.0); PLATELET COUNT 162 TH/MM3 (150-450); RED BLOOD COUNT 4.19 MIL/MM3 (4.00-5.30); RED CELL DISTRIBUTION WIDTH 14.2 % (11.6-17.2); WHITE BLOOD COUNT 6.9 TH/MM3 (4.0-11.0)
[2017-01-02 05:43] LABS: POTASSIUM 3.9 MEQ/L (3.5-5.1)
[2017-01-02 05:47] LABS: HEMO FLAGS AUTO DIFF
[2017-01-02 05:51] LABS: INTERNATIONAL NORMALIZED RATIO 1.5 RATIO; PROTHROMBIN TIME - PATIENT 16.9 SEC (9.8-11.6)
[2017-01-02 07:01] LABS: BANDS 6 % (0-6); METAMYELOCYTES 1 % (0-1); MYELOCYTES 1 % (0-0); NEUTROPHIL # MANUAL DIFF 6.6 TH/MM3 (1.8-7.7); POLYS (SEG NEUTROPHILS) 87 % (16-70); WBC DIFF SAMPLE 100
[2017-01-02 07:02] LABS: PLATELET ESTIMATE SMEAR NORMAL (NORMAL); PLATELET MORPHOLOGY NORMAL (NORMAL); SCAN/DIFF FINAL DIFF MANUAL
[2017-01-02] MEDS: BUDESONIDE-FORMOTEROL 160/4.5 MCG INHALER INH SCH ×2 (08:28→20:46)
[2017-01-02] MEDS: AZITHROMYCIN 250 MG TAB PO SCH (08:29)
[2017-01-02] MEDS: PANTOPRAZOLE SOD 40 MG DELAYED RELEASE TAB PO SCH (08:29)
[2017-01-02] MEDS: CARVEDILOL 12.5 MG TAB PO SCH ×2 (08:29→20:43)
[2017-01-02] MEDS: DOCUSATE SODIUM 100 MG CAP PO SCH ×2 (08:29→20:44)
[2017-01-02] MEDS: HYDROCHLOROTHIAZIDE 25 MG TAB PO SCH (08:29)
[2017-01-02] MEDS: FERROUS SULFATE 325 MG (65 MG ELEMENTAL IRON) TAB PO SCH (08:29)
[2017-01-02] MEDS: guaiFENesin E.R. 600 MG TAB PO SCH ×2 (08:29→20:44)
[2017-01-02] MEDS: predniSONE 20 MG TAB PO SCH (08:30)
[2017-01-02] MEDS: SODIUM CHLORIDE 0.9% FLUSH 10 ML FLUSH IV FLUSH SCH ×2 (08:31→20:54)
[2017-01-02] MEDS: TIOTROPIUM BROMIDE 18 MCG INH INH SCH (08:33)
--- NOTE | 2017-01-02 09:42 | HHI.PR ---
Subjective Remarks Follow-up Community-acquired pneumonia/sepsis/acute on chronic respiratory failure 12/31/16-patient seen and examined, reports some improvement or shortness of breath and denies any chest pain. Positive for nonproductive cough. Afebrile 01/01/17-patient seen and examined, now with some improvement of shortness of breath as well as productive cough. Currently on 2 L nasal cannula. Afebrile 01/02/17-patient seen and examined,complains of constipations and she had significant improvement of shortness of breath. Afebrile Objective Vitals Vital Signs Date Time Temp Pulse Resp B/P Pulse Ox O2 Delivery O2 Flow Rate FiO2 01/02/17 08:42 94 Nasal Cannula 2.00 01/02/17 08:00 96.5 67 17 165/83 92 01/02/17 04:24 98 Nasal Cannula 2.00 01/02/17 00:00 98.7 69 17 151/79 92 01/01/17 20:00 82 01/01/17 20:00 97.3 72 18 179/83 90 01/01/17 16:26 92 Nasal Cannula 2.00 01/01/17 16:00 96.2 62 17 130/71 93 01/01/17 12:24 97 Nasal Cannula 2.00 01/01/17 12:00 96.2 63 17 153/79 96 I/O 01/01/17 01/01/17 01/01/17 01/02/17 01/02/17 01/02/17 07:00 15:00 23:00 07:00 15:00 23:00 Intake Total 240 ml 360 ml 240 ml 240 ml Balance 240 ml 360 ml 240 ml 240 ml Intake Oral 240 ml 360 ml 240 ml 240 ml # Voids 4 3 3 1 # Bowel Movements 0 Result Diagram: 01/02/17 0504 01/02/17 0504 Imaging Last Impressions Chest X-Ray 12/30/161947 Signed Impressions: Service Date/Time: Friday, December 30, 2016 20:09 - CONCLUSION: Perihilar and basilar infiltrate, mainly on the left. Slight left hilar prominence. Nasim Peña MD Objective Remarks GENERAL: NAD SKIN: Warm and dry. HEAD: Normocephalic. EYES: No scleral icterus. No injection or drainage. NECK: Supple, trachea midline. No JVD or lymphadenopathy. CARDIOVASCULAR: Regular rate and rhythm without murmurs, gallops, or rubs. RESPIRATORY: Breath sounds decrease bilaterally. No accessory muscle use. GASTROINTESTINAL: Abdomen soft, non-tender, nondistended. MUSCULOSKELETAL: No cyanosis, or edema. BACK: Nontender without obvious deformity. No CVA tenderness. A/P Problem List: (1) COPD exacerbation ICD Code: J44.1 Status: Acute (2) Pneumonia ICD Code: J18.9 Status: Acute (3) Hypoxia ICD Code: R09.02 Status: Acute (4) COPD with acute lower respiratory infection ICD Code: J44.0 Status: Acute (5) COPD with respiratory failure, acute ICD Code: J96.00 Status: Acute Assessment and Plan 71-year-old female with COPD with acute respiratory failure ,Acute on chronic respiratory failure. Improving and Continue oxygen keep saturation at least 92%. Treatment for COPD exacerbation. Perform walk test prior to discharge Sepsis with tachycardia and tachypnea. Continue current antibiotics including Rocephin and azithromycin as sputum culture negative to date COPD with acute lower respiratory infection , community-acquired Pneumonia: Continue with IV Rocephin and Zithromax and monitor culture reports. Bacteremia?: Likely contaminant as 1#4BC positive, will repeat blood culture today 01/02/17 Acute COPD exacerbation. Continue prednisone 20 mg by mouth daily continue nebulizations and oxygen to keep saturation at least 92%. Continue Spiriva, Symbicort and Mucinex Chronic medical conditions of congestive heart failure, pulmonary embolism, hypertension and chronic back and leg pain on narcotic. Monitor for fluid overload BNP slightly up 186, CHF education, I/O and monitor weight. Continue hydrochlorothiazide. Continue outpatient medications as appropriate. Continue to hold losartan and amlodipine DVT prophylaxis with Coumadin and SCD Constipation: Start stool softener PT to treat and eval Discharge Planning Likely discharge in 1-2 days with home health care Problem Qualifiers (1) Pneumonia: Qualified Code: J18.9 - Pneumonia of left lung due to infectious organism, unspecified part of lung Bret Maher MD Jan 02, 2017 09:42
--- NOTE | 2017-01-02 09:42 | HHI.FF ---
Face to Face Verification Diagnosis: (1) COPD with acute lower respiratory infection Physical Therapy Order: Evaluate and Treat Home Health Nursing Order: Signs/symptoms of disease process I have seen patient Bren Purdy on 01/02/17. My clinical findings support the need for the requested home health care services because: Patient has SOB Deconditioned w/ increased weakness I certify that my clinical findings support that this patient is homebound because: Poor cardiac reserve Bret Maher MD Jan 02, 2017 09:42
[2017-01-02] MEDS: MAGNESIUM HYDROXIDE SUSP 30 ML CUP PO PRN (12:46)
[2017-01-02] MEDS ORDERED: WARFARIN SOD 5 MG TAB PO SCH ×2 (16:00)
[2017-01-02] MEDS: PRAVASTATIN SOD 20 MG TAB PO SCH (20:43)
[2017-01-02] MEDS: traZODone HCL 100 MG TAB PO SCH (20:44)
[2017-01-02] MEDS: cefTRIAXone INJ 1,000 MG in SODIUM CHLORIDE 0.9% INJ 100 ML IV SCH (20:50)
[2017-01-03] VITALS (9 sets, daily range): BP systolic 134–174; BP diastolic 75–92; PULSE 53–72; RESP 17–19; TEMP 95.8–97.5; O2SAT 90–100
[2017-01-03] MEDS: RESP: ALBUTEROL 2.5 MG/IPRATROPIUM 0.5 MG NEB (SCH) INH ×2 (04:49→09:43)
[2017-01-03] MEDS: guaiFENesin/CODEINE SYRUP 200 MG/20 MG/10 ML CUP PO PRN ×5 (04:49→23:12)
[2017-01-03] MEDS: ACETAMINOPHEN/HYDROcodone 325 MG/10 MG TAB PO PRN ×5 (04:51→23:12)
[2017-01-03 05:19] LABS: INTERNATIONAL NORMALIZED RATIO 1.6 RATIO; PROTHROMBIN TIME - PATIENT 17.9 SEC (9.8-11.6)
[2017-01-03] MEDS: CARVEDILOL 12.5 MG TAB PO SCH ×2 (09:00→20:36)
[2017-01-03] MEDS: SODIUM CHLORIDE 0.9% FLUSH 10 ML FLUSH IV FLUSH SCH ×2 (09:00→20:48)
[2017-01-03] MEDS: predniSONE 20 MG TAB PO SCH (09:00)
[2017-01-03] MEDS: DOCUSATE SODIUM 100 MG CAP PO SCH ×2 (10:08→20:37)
[2017-01-03] MEDS: PANTOPRAZOLE SOD 40 MG DELAYED RELEASE TAB PO SCH (10:08)
[2017-01-03] MEDS: AZITHROMYCIN 250 MG TAB PO SCH (10:08)
[2017-01-03] MEDS: HYDROCHLOROTHIAZIDE 25 MG TAB PO SCH (10:08)
[2017-01-03] MEDS: MAGNESIUM HYDROXIDE SUSP 30 ML CUP PO PRN (10:08)
[2017-01-03] MEDS: FERROUS SULFATE 325 MG (65 MG ELEMENTAL IRON) TAB PO SCH (10:09)
[2017-01-03] MEDS: BUDESONIDE-FORMOTEROL 160/4.5 MCG INHALER INH SCH ×2 (10:10→21:15)
[2017-01-03] MEDS: TIOTROPIUM BROMIDE 18 MCG INH INH SCH ×2 (10:10→20:38)
[2017-01-03] MEDS: guaiFENesin E.R. 600 MG TAB PO SCH ×2 (10:14→20:37)
[2017-01-03] MEDS ORDERED: LACTULOSE SYRUP 20 GM/30 ML CUP PO ONE (11:15)
--- NOTE | 2017-01-03 11:17 | HHI.PR ---
Subjective Remarks This a pleasant 71 y/o female with CHF, COPD, Chronic respiratory failure, on Home oxygen, Pulmonary emboli Hypertension, chronic back pain, leg pain and narcotic dependence, came to ER with SOB, currently on Coumadin for history of PE, She has chronic lower extremity edema today no edema found, has been on antibiotics for Pneumonia on Ceftriaxone and Azithromycin, Steroids, improving condition, no fever, No Leukocytosis, continue at baseline, she has Severe Decreased breath sounds, but no wheezing or crackles. seen in the room in the presence of female nurse Miss Ritchie, complaint of Constipation, discomfort on left lower quadrant. Objective Vital Signs Date Time Temp Pulse Resp B/P Pulse Ox O2 Delivery O2 Flow Rate FiO2 01/03/17 09:46 90 Nasal Cannula 2.00 01/03/17 08:00 95.8 56 17 141/75 94 01/03/17 05:51 18 01/03/17 04:51 97 Nasal Cannula 2.00 01/03/17 04:00 96.0 60 18 136/84 95 01/03/17 00:00 96.6 70 18 174/92 95 01/02/17 20:00 97.0 72 18 149/75 95 01/02/17 20:00 82 01/02/17 19:51 98 Nasal Cannula 2.00 01/02/17 16:00 97.4 69 18 174/77 94 01/02/17 12:00 95.9 59 18 145/69 95 I/O 01/02/17 01/02/17 01/02/17 01/03/17 01/03/17 01/03/17 07:00 15:00 23:00 07:00 15:00 23:00 Intake Total 240 ml 780 ml 340 ml 320 ml Balance 240 ml 780 ml 340 ml 320 ml Intake Oral 240 ml 780 ml 240 ml 320 ml IV Total 100 ml # Voids 1 8 1 3 # Bowel Movements 0 0 1 Result Diagram: 01/02/17 0504 01/02/17 0504 Imaging Last Impressions Chest X-Ray 12/30/161947 Signed Impressions: Service Date/Time: Friday, December 30, 2016 20:09 - CONCLUSION: Perihilar and basilar infiltrate, mainly on the left. Slight left hilar prominence. Nasim Peña MD Procedures No procedures performed to the patient. Other Results Date/Time Procedure Status Source Growth 01/02/17 11:25 Aerobic Blood Culture Received Blood Peripheral Pending 01/02/17 11:25 Anaerobic Blood Culture Received Blood Peripheral Pending Laboratory Tests Test 12/30/16 12/30/16 12/30/16 01/02/17 20:00 21:35 22:00 05:04 Activated Partial 49.0 SEC Thromboplast Time Magnesium Level 1.7 MG/DL Total Bilirubin 0.5 MG/DL Aspartate Amino Transf 14 U/L (AST/SGOT) Alanine Aminotransferase 13 U/L (ALT/SGPT) Alkaline Phosphatase 151 U/L Total Creatine Kinase 36 U/L Troponin I LESS THAN 0.02 NG/ML B-Type Natriuretic Peptide 186 PG/ML Total Protein 6.9 GM/DL Albumin 2.6 GM/DL Blood Gas Puncture Site LT RADIAL Blood Gas Patient Temperature 98.6 Blood Gas HCO3 30 mmol/L Blood Gas Base Excess 5.3 mmol/L Blood Gas Oxygen Saturation 90 % Arterial Blood pH 7.42 Arterial Blood Partial 46 mmHg Pressure CO2 Arterial Blood Partial 58 mmHG Pressure O2 Arterial Blood Oxygen Content 15.4 Vol % Arterial Blood 2.0 % Carboxyhemoglobin Arterial Blood Methemoglobin 0.4 % Blood Gas Hemoglobin 12.2 G/DL Oxygen Delivery Device NASAL CANNULA Blood Gas Liter Flow 3 L/M Lactic Acid Level 0.9 mmol/L White Blood Count 6.9 TH/MM3 Red Blood Count 4.19 MIL/MM3 Hemoglobin 11.9 GM/DL Hematocrit 35.7 % Mean Corpuscular Volume 85.2 FL Mean Corpuscular Hemoglobin 28.4 PG Mean Corpuscular Hemoglobin 33.3 % Concent Red Cell Distribution Width 14.2 % Platelet Count 162 TH/MM3 Mean Platelet Volume 6.1 FL Neutrophils (%) (Auto) 90.6 % Lymphocytes (%) (Auto) 5.8 % Monocytes (%) (Auto) 3.5 % Eosinophils (%) (Auto) 0.0 % Basophils (%) (Auto) 0.1 % Neutrophils # (Auto) 6.2 TH/MM3 Lymphocytes # (Auto) 0.4 TH/MM3 Monocytes # (Auto) 0.2 TH/MM3 Eosinophils # (Auto) 0.0 TH/MM3 Basophils # (Auto) 0.0 TH/MM3 CBC Comment AUTO DIFF Differential Total Cells 100 Counted Neutrophils % (Manual) 87 % Band Neutrophils % 6 % Lymphocytes % 3 % Monocytes % 2 % Neutrophils # (Manual) 6.6 TH/MM3 Metamyelocytes 1 % Myelocytes 1 % Differential Comment FINAL DIFF MANUAL Platelet Estimate NORMAL Platelet Morphology Comment NORMAL Red Cell Morphology Comment NORMAL Sodium Level 138 MEQ/L Potassium Level 3.9 MEQ/L Chloride Level 97 MEQ/L Carbon Dioxide Level 34.0 MEQ/L Anion Gap 7 MEQ/L Blood Urea Nitrogen 31 MG/DL Creatinine 0.75 MG/DL Estimat Glomerular Filtration 76 ML/MIN Rate Random Glucose 153 MG/DL Calcium Level 8.7 MG/DL Test 01/03/17 04:34 Prothrombin Time 17.9 SEC Prothromb Time International 1.6 RATIO Ratio Objective Remarks GENERAL: NAD SKIN: Warm and dry. HEAD: Normocephalic. EYES: No scleral icterus. No injection or drainage. NECK: Supple, trachea midline. No JVD or lymphadenopathy. CARDIOVASCULAR: Regular rate and rhythm without murmurs, gallops, or rubs. RESPIRATORY: Breath sounds severe decreased bilaterally. No accessory muscle use. no wheezing or crackles. GASTROINTESTINAL: Abdomen soft, non-tender, nondistended. MUSCULOSKELETAL: No cyanosis, or edema. BACK: Nontender without obvious deformity. No CVA tenderness. Medications and IVs Current Medications Medications (Trade) Dose Ordered Sig/Sarahi Route Start Time Stop Time Status Last Admin (Rocephin Inj/NS Inj) 100 ml @ 200 mls/hr Q24H IV 12/31/16 21:00 01/02/17 20:50 (NS Flush) 2 ml UNSCH PRN IV FLUSH 12/30/16 21:30 (NS Flush) 2 ml BID IV FLUSH 12/31/16 09:00 01/03/17 09:00 (Tylenol) 650 mg Q4H PRN PO 12/30/16 21:30 12/31/16 21:56 (Zofran Inj) 4 mg Q6H PRN IVP 12/30/16 21:30 (Colace) 100 mg Q12HR PO 12/30/16 21:30 01/03/17 10:08 (Senokot) 17.2 mg Q12H PRN PO 12/30/16 21:30 (Tylenol) 650 mg Q6H PRN PO 12/30/16 21:30 12/30/16 21:47 (Narcan Inj) 0.4 mg UNSCH PRN IV 12/30/16 21:30 (Vasotec Inj) 1.25 mg Q6H PRN IV 12/30/16 21:30 Clonidine 0.1 mg 0.1 mg Q6H PRN PO 12/30/16 21:30 (Coumadin Consult Pharmacy) 0 ml @ 0 mls/hr UNSCH OTHER 12/30/16 21:30 (Coreg) 25 mg BID PO 12/31/16 09:00 01/02/17 20:43 (Ferrous Sulfate) 325 mg DAILY PO 12/31/16 09:00 01/03/17 10:09 ([place] 10-325 Mg) 1 tab Q4H PRN PO 12/30/16 21:30 01/03/17 10:10 (Pravachol) 20 mg HS PO 12/31/16 21:00 01/02/17 20:43 (Desyrel) 200 mg HS PO 12/30/16 22:00 01/02/17 20:44 (Protonix) 40 mg DAILY PO 12/31/16 09:00 01/03/17 10:08 (Robitussin Ac 200-20 Mg/10 ml Liq) 10 ml Q4H PRN PO 12/30/16 22:00 01/03/17 10:08 (Hydrodiuril) 25 mg DAILY PO 12/31/16 09:00 01/03/17 10:08 (Spiriva Inh) 18 mcg DAILY INH 12/31/16 11:00 01/03/17 10:10 (Symbicort 160-4.5 Inh) 2 puff Q12HR INH 12/31/16 21:00 01/03/17 10:10 (Mucinex Er) 600 mg BID PO 12/31/16 21:00 01/03/17 10:14 (Deltasone) 20 mg DAILY PO 01/02/17 09:00 01/03/17 09:00 (Zithromax) 500 mg DAILY PO 01/02/17 09:00 01/03/17 10:08 (Coumadin) 5 mg MoWeFr@16 PO 01/02/17 16:00 01/02/17 16:55 (Milk Of Magnesia Liq) 30 ml Q6H PRN PO 01/02/17 09:45 01/03/17 10:08 (Coumadin) 5 mg ONCE PO 01/03/17 16:00 01/03/17 21:00 A/P Problem List: (1) Hypoxia ICD Code: R09.02 (2) Pneumonia ICD Code: J18.9 (3) COPD exacerbation ICD Code: J44.1 (4) COPD with acute lower respiratory infection ICD Code: J44.0 Assessment and Plan 1. COPD exacerbation continue Bronchodilators, Mucolytic, incentive spirometry, she has already oxygen at home will continue Home oxygen, steroids. 2. Sepsis with tachycardia and tachypnea, continue Rocephin and Azithromycin, Improving, Strep Pneumonia 3. CAP Streptococcus Pneumonia continue antibiotics. 4. Bacteremia Likely contaminant repeated cultures on 01/02/17 negative 5. PE by history on Coumadin, continue 6. CHF by history and Hypertension continue home care. Chronic medical conditions of congestive heart failure, pulmonary embolism, hypertension and chronic back and leg pain on narcotic. Monitor for fluid overload BNP slightly up 186, CHF education, I/O and monitor weight. Continue hydrochlorothiazide. Continue outpatient medications as appropriate. Continue to hold losartan and amlodipine DVT prophylaxis with Coumadin and SCD Constipation: Start stool softener PT to treat and eval Discharge Planning Expected for 01/03/17 Problem Qualifiers (1) Pneumonia: Qualified Code: J18.9 - Pneumonia of left lung due to infectious organism, unspecified part of lung Hebert Freedman MD Jan 03, 2017 11:17
[2017-01-03] MEDS ORDERED: guaiFENesin E.R. 600 MG TAB PO SCH (11:30)
[2017-01-03] MEDS: RESP: ALBUTEROL 2.5 MG/IPRATROPIUM 0.5 MG NEB (SCH) NEB ×3 (12:42→19:57)
[2017-01-03] MEDS ORDERED: WARFARIN SOD 5 MG TAB PO SCH (16:00)
[2017-01-03] MEDS: PRAVASTATIN SOD 20 MG TAB PO SCH (20:36)
[2017-01-03] MEDS: cefTRIAXone INJ 1,000 MG in SODIUM CHLORIDE 0.9% INJ 100 ML IV SCH (20:36)
[2017-01-03] MEDS: traZODone HCL 100 MG TAB PO SCH (20:36)
[2017-01-04] VITALS: BP 143/76; PULSE 73; RESP 18; TEMP 97.8; O2SAT 95
[2017-01-04] MEDS: RESP: ALBUTEROL 2.5 MG/IPRATROPIUM 0.5 MG NEB (SCH) NEB ×3 (00:39→09:06)
[2017-01-04 00:42] VITALS: O2SAT 95
[2017-01-04] MEDS: ACETAMINOPHEN/HYDROcodone 325 MG/10 MG TAB PO PRN ×2 (04:17→08:34)
[2017-01-04] MEDS: guaiFENesin/CODEINE SYRUP 200 MG/20 MG/10 ML CUP PO PRN (04:17)
[2017-01-04 04:55] LABS: INTERNATIONAL NORMALIZED RATIO 2.1 RATIO; PROTHROMBIN TIME - PATIENT 23.5 SEC (9.8-11.6)
[2017-01-04 08:00] VITALS: BP 170/88; PULSE 63; RESP 16; TEMP 96.8; O2SAT 93
--- NOTE | 2017-01-04 08:22 | HHI.PR ---
Subjective Remarks This a pleasant 71 y/o female with CHF, COPD, Chronic respiratory failure, on Home oxygen, Pulmonary emboli Hypertension, chronic back pain, leg pain and narcotic dependence, came to ER with SOB, currently on Coumadin for history of PE, She has chronic lower extremity edema today no edema found, has been on antibiotics for Pneumonia on Ceftriaxone and Azithromycin, Steroids, improving condition, no fever, No Leukocytosis, continue at baseline, she has Severe Decreased breath sounds, but no wheezing or crackles. seen in the room in the presence of female nurse Miss Ritchie, complaint of Constipation, discomfort on left lower quadrant. related to constipation that improved after Bowel movement. 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 no new complaint. Objective Vital Signs Date Time Temp Pulse Resp B/P Pulse Ox O2 Delivery O2 Flow Rate FiO2 01/04/17 06:07 20 01/04/17 00:42 95 Nasal Cannula 2.00 01/04/17 00:00 97.8 73 18 143/76 95 01/03/17 20:00 97.5 72 18 162/78 100 01/03/17 20:00 92 Nasal Cannula 2.00 01/03/17 17:20 53 01/03/17 16:00 96.7 72 19 134/76 95 01/03/17 12:00 95.8 68 18 142/75 94 01/03/17 09:46 90 Nasal Cannula 2.00 I/O 01/03/17 01/03/17 01/03/17 01/04/17 01/04/17 01/04/17 07:00 15:00 23:00 07:00 15:00 23:00 Intake Total 320 ml 640 ml 580 ml 60 ml Balance 320 ml 640 ml 580 ml 60 ml Intake Oral 320 ml 640 ml 480 ml 60 ml IV Total 100 ml # Voids 3 6 4 2 # Bowel Movements 1 0 Result Diagram: 01/02/17 0504 01/02/17 0504 Imaging Last Impressions Chest X-Ray 12/30/161947 Signed Impressions: Service Date/Time: Friday, December 30, 2016 20:09 - CONCLUSION: Perihilar and basilar infiltrate, mainly on the left. Slight left hilar prominence. Nasim Peña MD Procedures No procedures performed to the patient. Other Results Laboratory Tests Test 01/02/17 01/04/17 05:04 03:45 White Blood Count 6.9 TH/MM3 Red Blood Count 4.19 MIL/MM3 Hemoglobin 11.9 GM/DL Hematocrit 35.7 % Mean Corpuscular Volume 85.2 FL Mean Corpuscular Hemoglobin 28.4 PG Mean Corpuscular Hemoglobin 33.3 % Concent Red Cell Distribution Width 14.2 % Platelet Count 162 TH/MM3 Mean Platelet Volume 6.1 FL Neutrophils (%) (Auto) 90.6 % Lymphocytes (%) (Auto) 5.8 % Monocytes (%) (Auto) 3.5 % Eosinophils (%) (Auto) 0.0 % Basophils (%) (Auto) 0.1 % Neutrophils # (Auto) 6.2 TH/MM3 Lymphocytes # (Auto) 0.4 TH/MM3 Monocytes # (Auto) 0.2 TH/MM3 Eosinophils # (Auto) 0.0 TH/MM3 Basophils # (Auto) 0.0 TH/MM3 CBC Comment AUTO DIFF Differential Total Cells 100 Counted Neutrophils % (Manual) 87 % Band Neutrophils % 6 % Lymphocytes % 3 % Monocytes % 2 % Neutrophils # (Manual) 6.6 TH/MM3 Metamyelocytes 1 % Myelocytes 1 % Differential Comment FINAL DIFF MANUAL Platelet Estimate NORMAL Platelet Morphology Comment NORMAL Red Cell Morphology Comment NORMAL Sodium Level 138 MEQ/L Potassium Level 3.9 MEQ/L Chloride Level 97 MEQ/L Carbon Dioxide Level 34.0 MEQ/L Anion Gap 7 MEQ/L Blood Urea Nitrogen 31 MG/DL Creatinine 0.75 MG/DL Estimat Glomerular Filtration 76 ML/MIN Rate Random Glucose 153 MG/DL Calcium Level 8.7 MG/DL Prothrombin Time 23.5 SEC Prothromb Time International 2.1 RATIO Ratio Objective Remarks GENERAL: No acute distress. SKIN: Warm and dry. HEAD: Normocephalic. EYES: No scleral icterus. No injection or drainage. NECK: Supple, trachea midline. No JVD or lymphadenopathy. CARDIOVASCULAR: Regular rate and rhythm without murmurs, gallops, or rubs. RESPIRATORY: Breath sounds severe decreased bilaterally. No accessory muscle use. no wheezing or crackles. GASTROINTESTINAL: Abdomen soft, non-tender, nondistended. MUSCULOSKELETAL: No cyanosis, or edema. BACK: Nontender without obvious deformity. No CVA tenderness. Medications and IVs Current Medications Medications (Trade) Dose Ordered Sig/Sarahi Route Start Time Stop Time Status Last Admin (Rocephin Inj/NS Inj) 100 ml @ 200 mls/hr Q24H IV 12/31/16 21:00 01/03/17 20:36 (NS Flush) 2 ml UNSCH PRN IV FLUSH 12/30/16 21:30 (NS Flush) 2 ml BID IV FLUSH 12/31/16 09:00 01/03/17 20:48 (Tylenol) 650 mg Q4H PRN PO 12/30/16 21:30 12/31/16 21:56 (Zofran Inj) 4 mg Q6H PRN IVP 12/30/16 21:30 (Colace) 100 mg Q12HR PO 12/30/16 21:30 01/03/17 10:08 (Senokot) 17.2 mg Q12H PRN PO 12/30/16 21:30 (Tylenol) 650 mg Q6H PRN PO 12/30/16 21:30 12/30/16 21:47 (Narcan Inj) 0.4 mg UNSCH PRN IV 12/30/16 21:30 (Vasotec Inj) 1.25 mg Q6H PRN IV 12/30/16 21:30 Clonidine 0.1 mg 0.1 mg Q6H PRN PO 12/30/16 21:30 (Coumadin Consult Pharmacy) 0 ml @ 0 mls/hr UNSCH OTHER 12/30/16 21:30 (Coreg) 25 mg BID PO 12/31/16 09:00 01/03/17 20:36 (Ferrous Sulfate) 325 mg DAILY PO 12/31/16 09:00 01/03/17 10:09 (Waves 10-325 Mg) 1 tab Q4H PRN PO 12/30/16 21:30 01/04/17 04:17 (Pravachol) 20 mg HS PO 12/31/16 21:00 01/03/17 20:36 (Desyrel) 200 mg HS PO 12/30/16 22:00 01/03/17 20:36 (Protonix) 40 mg DAILY PO 12/31/16 09:00 01/03/17 10:08 (Robitussin Ac 200-20 Mg/10 ml Liq) 10 ml Q4H PRN PO 12/30/16 22:00 01/04/17 04:17 (Hydrodiuril) 25 mg DAILY PO 12/31/16 09:00 01/03/17 10:08 (Spiriva Inh) 18 mcg DAILY INH 12/31/16 11:00 01/03/17 20:38 (Symbicort 160-4.5 Inh) 2 puff Q12HR INH 12/31/16 21:00 01/03/17 21:15 (Mucinex Er) 600 mg BID PO 12/31/16 21:00 01/03/17 20:37 (Deltasone) 20 mg DAILY PO 01/02/17 09:00 01/03/17 09:00 (Zithromax) 500 mg DAILY PO 01/02/17 09:00 01/03/17 10:08 (Milk Of Magnesia Liq) 30 ml Q6H PRN PO 01/02/17 09:45 01/03/17 10:08 (Coumadin) 5 mg MoWeFr@16 PO 01/06/17 16:00 A/P Problem List: (1) Hypoxia ICD Code: R09.02 (2) Pneumonia ICD Code: J18.9 (3) COPD exacerbation ICD Code: J44.1 (4) COPD with acute lower respiratory infection ICD Code: J44.0 Assessment and Plan 1. End stage COPD exacerbation continue Bronchodilators, Mucolytic, incentive spirometry, she has already oxygen at home will continue Home oxygen, steroids. continue present care at home, Titrated dosages of Steroids to discharge. 2. Sepsis with tachycardia and tachypnea, continue Rocephin and Azithromycin, Improving, Strep Pneumonia will continue Levofloxacin at home for seven more days and Probiotics. 3. CAP Streptococcus Pneumonia continue antibiotics. for seven more days. 4. Bacteremia Likely contaminant repeated cultures on 01/02/17 negative 5. PE by history on Coumadin, continue INR therapeutic. 6. CHF by history and Hypertension continue home care. Chronic medical conditions of congestive heart failure, pulmonary embolism, hypertension and chronic back and leg pain on narcotics. Monitor for fluid overload BNP slightly up 186, CHF education, I/O and monitor weight. Continue hydrochlorothiazide. Continue outpatient medications as appropriate. Continue to hold losartan and amlodipine DVT prophylaxis with Coumadin and SCD Okay to discharge Home now. as per Physical therapy specialist recommended HHC for PT will add Skilled nurse at discharge. Discussed with patient and nurse in the room miss Talamantes. Discharge Planning Discharge Home today on HHC for PT and Skilled nurse. Problem Qualifiers (1) Pneumonia: Qualified Code: J18.9 - Pneumonia of left lung due to infectious organism, unspecified part of lung Hebert Freedman MD Jan 04, 2017 08:22
[2017-01-04] MEDS: AZITHROMYCIN 250 MG TAB PO SCH (08:34)
[2017-01-04] MEDS: HYDROCHLOROTHIAZIDE 25 MG TAB PO SCH (08:34)
[2017-01-04] MEDS: CARVEDILOL 12.5 MG TAB PO SCH (08:34)
[2017-01-04] MEDS: DOCUSATE SODIUM 100 MG CAP PO SCH (08:34)
[2017-01-04] MEDS: guaiFENesin E.R. 600 MG TAB PO SCH (08:34)
[2017-01-04] MEDS: FERROUS SULFATE 325 MG (65 MG ELEMENTAL IRON) TAB PO SCH (08:34)
[2017-01-04] MEDS: predniSONE 20 MG TAB PO SCH (08:35)
[2017-01-04] MEDS: PANTOPRAZOLE SOD 40 MG DELAYED RELEASE TAB PO SCH (08:35)
[2017-01-04] MEDS: BUDESONIDE-FORMOTEROL 160/4.5 MCG INHALER INH SCH (08:36)
[2017-01-04] MEDS: SODIUM CHLORIDE 0.9% FLUSH 10 ML FLUSH IV FLUSH SCH (08:36)
[2017-01-04 09:07] VITALS: O2SAT 95
[2017-01-04] MEDS ORDERED: SPIRCAP INH (09:29)
[2017-01-04] MEDS ORDERED: PRED5TAB PO (09:29)
[2017-01-04] MEDS ORDERED: LEVO750T33 PO (09:29)
[2017-01-04] MEDS ORDERED: MUCI600T PO (09:29)
[2017-01-04] MEDS ORDERED: SYMB160A INH (09:29)
--- NOTE | 2017-01-04 09:31 | HHI.FF ---
Face to Face Verification Diagnosis: (1) Hypoxia (2) Pneumonia (3) COPD exacerbation (4) COPD with respiratory failure, acute (5) COPD with acute lower respiratory infection Physical Therapy Order: Evaluate and Treat, Strength and gait training Home Health Nursing Order: Medical education Signs/symptoms of disease process Oxygen administration education Nursing assessment with vital signs Instructions: Needs PT and INR following Warfarin intake on daily bases with INR goal of 2 to 3 and hold Warfarin when INR in 3 or over titrate with her PCP. I have seen patient Bren Purdy on 01/04/17. My clinical findings support the need for the requested home health care services because: Deconditioned w/ increased weakness I certify that my clinical findings support that this patient is homebound because: Hx COPD- exertion dyspnea/weakness Hebert Freedman MD Jan 04, 2017 09:31
[2017-01-04] MEDS ORDERED: SACC1CAP3 PO (09:33)
--- NOTE | 2017-01-04 09:33 | HHI.DS ---
Discharge Summary Admission Date Dec 30, 2016 at 21:24 Discharge Date: Jan 04, 2017 Admitting Diagnosis pneumonia, hypoxia, COPD exacerbation (1) COPD exacerbation ICD Code: J44.1 (2) Pneumonia ICD Code: J18.9 Diagnosis: Principal (3) Hypoxia ICD Code: R09.02 Diagnosis: Principal (4) COPD with acute lower respiratory infection ICD Code: J44.0 Diagnosis: Principal (5) COPD with respiratory failure, acute ICD Code: J96.00 Diagnosis: Principal Procedures No procedures performed. Brief History - From Admission This a 71-year-old female with a history of congestive heart failure, COPD, chronic respiratory failure on 1 L nasal cannula at home, pulmonary embolism, hypertension and chronic back and leg pain on narcotic. See presents to the emergency department shortness of breath. The patient is currently on vacation from [place]. She developed shortness of breath last night which has progressively worsened associated with wheezing. It is worse with exertion. She also complains of cough unable to bring up phlegm. The patient denies any history of previous intubations for COPD, however, does note a history of previous blood clot. The patient is currently on Coumadin for a blood clot. The patient denies any fever, chills, sweats, nausea, diarrhea or abdominal pain. She has chronic lower extremity edema. In the emergency department, she was found to have pneumonia and was given IV Zithromax, Rocephin, Solu-Medrol and nebulizations. She has been advised further hospitalization. CBC/BMP: 01/02/17 0504 01/02/17 0504 Significant Findings Laboratory Tests Test 01/02/17 01/03/17 01/04/17 05:04 04:34 03:45 Mean Platelet Volume 6.1 FL (7.0-11.0) Neutrophils (%) (Auto) 90.6 % (16.0-70.0) Lymphocytes (%) (Auto) 5.8 % (9.0-44.0) Lymphocytes # (Auto) 0.4 TH/MM3 (1.0-4.8) Neutrophils % (Manual) 87 % (16-70) Lymphocytes % 3 % (9-44) Myelocytes 1 % (0-0) Prothrombin Time 16.9 SEC 17.9 SEC 23.5 SEC (9.8-11.6) (9.8-11.6) (9.8-11.6) Chloride Level 97 MEQ/L (98-107) Carbon Dioxide Level 34.0 MEQ/L (21.0-32.0) Blood Urea Nitrogen 31 MG/DL (7-18) Estimat Glomerular Filtration 76 ML/MIN (>89) Rate Random Glucose 153 MG/DL (74-106) Imaging Last Impressions Chest X-Ray 12/30/161947 Signed Impressions: Service Date/Time: Friday, December 30, 2016 20:09 - CONCLUSION: Perihilar and basilar infiltrate, mainly on the left. Slight left hilar prominence. Nasim Peña MD PE at Discharge GENERAL: No acute distress. SKIN: Warm and dry. HEAD: Normocephalic. EYES: No scleral icterus. No injection or drainage. NECK: Supple, trachea midline. No JVD or lymphadenopathy. CARDIOVASCULAR: Regular rate and rhythm without murmurs, gallops, or rubs. RESPIRATORY: Breath sounds severe decreased bilaterally. No accessory muscle use. no wheezing or crackles. GASTROINTESTINAL: Abdomen soft, non-tender, nondistended. MUSCULOSKELETAL: No cyanosis, or edema. BACK: Nontender without obvious deformity. No CVA tenderness. Hospital Course This a pleasant 71 y/o female with CHF, COPD, Chronic respiratory failure, on Home oxygen, Pulmonary emboli Hypertension, chronic back pain, leg pain and narcotic dependence, came to ER with SOB, currently on Coumadin for history of PE, She has chronic lower extremity edema today no edema found, has been on antibiotics for Pneumonia on Ceftriaxone and Azithromycin, Steroids, improving condition, no fever, No Leukocytosis, continue at baseline, she has Severe Decreased breath sounds, but no wheezing or crackles. seen in the room in the presence of female nurse Miss Ritchie, complaint of Constipation, discomfort on left lower quadrant. related to constipation that improved after Bowel movement. 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 no new complaint. Assessment and Plan 1. End stage COPD exacerbation continue Bronchodilators, Mucolytic, incentive spirometry, she has already oxygen at home will continue Home oxygen, steroids. continue present care at home, Titrated dosages of Steroids to discharge. 2. Sepsis with tachycardia and tachypnea, continue Rocephin and Azithromycin, Improving, Strep Pneumonia will continue Levofloxacin at home for seven more days and Probiotics. 3. CAP Streptococcus Pneumonia continue antibiotics. for seven more days. 4. Bacteremia Likely contaminant repeated cultures on 01/02/17 negative 5. PE by history on Coumadin, continue INR therapeutic. 6. CHF by history and Hypertension continue home care. Chronic medical conditions of congestive heart failure, pulmonary embolism, hypertension and chronic back and leg pain on narcotics. Monitor for fluid overload BNP slightly up 186, CHF education, I/O and monitor weight. Continue hydrochlorothiazide. Continue outpatient medications as appropriate. Continue to hold losartan and amlodipine DVT prophylaxis with Coumadin and SCD Okay to discharge Home now. as per Physical therapy specialist recommended HHC for PT will add Skilled nurse at discharge. Discussed with patient and nurse in the room miss Talamantes. Discharge Planning Discharge Home today on HHC for PT and Skilled nurse. Pt Condition on Discharge: Fair Discharge Disposition: Disch w/ Home Health Serv Discharge Time: > 30 minutes Discharge Instructions DIET: Follow Instructions for: Heart Healthy Diet Activities you can perform: Regular-No Restrictions Hebert Freedman MD Jan 04, 2017 09:33
[2017-01-04] MEDS ORDERED: LOSARTAN 50 MG TAB PO ONE (10:00)
[2017-01-04] MEDS ORDERED: amLODIPine BESYLATE 5 MG TAB PO ONE (10:00)
[2017-01-04] MEDS ORDERED: WARFARIN SOD 2 MG TAB PO SCH (16:00)
[2017-01-06] MEDS ORDERED: WARFARIN SOD 5 MG TAB PO SCH (16:00)
== END 2017-01-04 12:04 | disposition home health service (06) | DRG 871 ==
LOC: NEPA 19:43 → NEDA 21:24 → N07B 23:15
PROVIDERS: ADMIT Internal Medicine; ATTEND Internal Medicine
DX: A41.9 Sepsis, unspecified organism (principal); J44.0 Chronic obstructive pulmonary disease with (acute) lower respiratory infection; J15.4 Pneumonia due to other streptococci; J96.21 Acute and chronic respiratory failure with hypoxia; I50.9 Heart failure, unspecified; Z99.81 Dependence on supplemental oxygen; J44.1 Chronic obstructive pulmonary disease with (acute) exacerbation; F11.20 Opioid dependence, uncomplicated; Z86.711 Personal history of pulmonary embolism; Z79.01 Long term (current) use of anticoagulants; I10 Essential (primary) hypertension; G89.29 Other chronic pain; M54.9 Dorsalgia, unspecified; Z72.0 Tobacco use
CPT/HCPCS: 36600; 71010; 80048; 80053; 82550; 82805; 83605; 83735; 83880; 84484; 85007; 85025; 85027; 85610; 85730; 87040; 87070; 87077; 87186; 87205; 87804; 93005; 94150; 94640; 94664; 96374; 96375; J0456; J0696; J2920; J2930; J7050; J7512